=== PATIENT | female | born 1985 | race Two or more races ===

== ENCOUNTER 2019-09-17 21:28 | Emergency (ER) | payer BC ==
[~2019-09-17] VITALS: Ht 170.2 cm; Wt 65.8 kg
[2019-09-17] MEDS ORDERED: diphenhydrAMINE HCL 50 MG/ML VIAL ONE (21:56)
[2019-09-17] MEDS ORDERED: FAMOTIDINE/PF INJ 20 MG/2 ML VIAL IV ONE ×2 (21:56→22:00)
[2019-09-17] MEDS ORDERED: methylPREDNISolone SOD SUCC 125 MG/2ML VIAL ONE (21:56)
[2019-09-17] MEDS ORDERED: EPINEPHRINE (1:1000) 1 MG/ML AMPUL ONE (21:56)
[2019-09-17 22:00] LABS: BASOPHILS # (AUTO) 0.1 /CMM (0.0-0.2)
[2019-09-17] MEDS ORDERED: EPINEPHRINE (1:1000) MDV 30 MG/30ML VIAL SUBCUT ONE (22:00)
[2019-09-17] MEDS ORDERED: diphenhydrAMINE HCL 50 MG/ML VIAL IV ONE (22:00)
[2019-09-17] MEDS ORDERED: methylPREDNISolone SOD SUCC 125 MG/2ML VIAL IV ONE (22:00)
[2019-09-17 22:05] LABS: BASOPHILS % (AUTO) 0.9 % (0.0-2.0); MEAN CORPUSCULAR VOLUME 88 fL (82-100)
[2019-09-17 22:08] LABS: EOSINOPHILS % (AUTO) 0.7 % (0.0-6.0); HEMATOCRIT 43 % (33-45); HEMOGLOBIN 14.8 g/dL (11.5-14.8); LYMPHOCYTES % (AUTO) 65.4 % (20.0-44.0); MEAN CORPUSCULAR HGB CONC 35 g/dl (31.0-36.0); MONOCYTES # (AUTO) 0.5 /CMM (0.1-1.30); MONOCYTES % (AUTO) 4.3 % (2.0-12.0); NEUTROPHILS # (AUTO) 3.1 /CMM (1.8-8.9); NEUTROPHILS % (AUTO) 28.7 % (43.0-81.0); PLATELET COUNT (AUTO) 224 /CMM (150-450); RED BLOOD CELL COUNT(AUTO) 4.81 MIL/uL (4.0-5.2); WHITE BLOOD COUNT (AUTO) 10.8 K/uL (4.3-11.0)
[2019-09-17 22:19] LABS: CALCIUM, SERUM 8.9 mg/dL (8.5-10.1); CREATININE 0.8 mg/dL (0.6-1.3); POTASSIUM 3.4 mmol/L (3.5-5.1)
--- NOTE | 2019-09-17 22:20 | NUR ---
PT BIBSELF C/O ALLERGIC REACTION AFTER EATING "SUGARFISH", SOB/REDNESS. PT AAOX4, VSS. DENIES CP, DIZZINESS, N/V @ THIS TIME. SEEN & EVAL'D BY DR. RESTREPO. PLACED ON DIGITAL EDITOR. MEDICATED ORDERED. WILL CONT TO MONITOR. BF @ BS.
[2019-09-17 23:25] LABS: LYMPHOCYTES % (MANUAL) 69 % (16-48); MONOCYTES % (MANUAL) 1 % (0-11.0); NEUTROPHILS % (MANUAL) 27 (42-76); REACTIVE LYMPHOCYTES 3 % (0-0)
--- NOTE | 2019-09-18 01:27 | NUR ---
Patient discharged to home in stable condition. Written and verbal after care instructions given. Patient verbalizes understanding of instruction.IV removed. Catheter intact and site benign. Pressure and 4x4 applied to site. No bleeding noted. Pt ambulatory with a steady gait
[2019-09-18 01:56] VITALS: BP 71/124
== END 2019-09-18 01:57 | disposition home or self-care (01) ==
LOC: ER 21:31
DX: T78.3XXA Angioneurotic edema, initial encounter (principal); L27.2 Dermatitis due to ingested food
CPT/HCPCS: 36415; 80048; 85025; 96372; 96374; 96375; 99283; J0171 ×2; J1200; J2930; J3490